=== PATIENT | female | born 1945 | race Caucasian/White ===

== ENCOUNTER → 2016-06-07 | Outpatient (CLI) | payer OTHER, MEDICARE ==
--- NOTE | 2016-06-07 21:02 | MA ---
Diagnostic Digital Mammogram, With iCAD Analysis Reason for Examination: Routine screening. Patient anxiety. Breast parenchymal density: Type B; Scattered fibroglandular densities. Technique: Four views of each breast are obtained including CC and oblique lateral Stu (implant d isplaced) and non-Stu (implant not displaced) views. Images were reviewed using the iCAD computer aided detection system. Comparison: May 2011 and August 2001. Findings: Breast implants are in place bilaterally. iCAD is reviewed. No suspicious areas are iden tified. There has been no significant change in the appearance of either breast. Breast implants di minish the sensitivity of mammography. Impression: Negative mammogram. BI-RADS 1. Recommendation: Routine screening is recommended in one year as long as physical examination is nega tive. A verbal report was given to the patient. [facility] will send a result letter to the patient. Negative mammography should not preclude additional workup of a clinically suspicious finding. The patient's information is entered into a reminder system with a target due date for her next mammo gram.
== END ==
LOC: FIMAGING 14:35
DX: Z12.31 Encounter for screening mammogram for malignant neoplasm of breast (principal)
CPT/HCPCS: G0204